=== PATIENT | male | born 1955 | race Caucasian/White ===

== ENCOUNTER 2023-05-27 04:52 | Emergency (ER) | payer BC, OTHER ==
[~2023-05-27] VITALS: Ht 172.7 cm; Wt 81.6 kg
[2023-05-27 04:58] VITALS: BP 116/75; PULSE 97; RESP 16; TEMP 97.3; O2SAT 98
[2023-05-27 05:00] VITALS: BP 116/75; PULSE 97; RESP 16; TEMP 97.3; O2SAT 98
== END 2023-05-27 05:00 | disposition home or self-care (01) ==
LOC: MED 04:52
DX: F10.129 Alcohol abuse with intoxication, unspecified (principal); Y90.0 Blood alcohol level of less than 20 mg/100 ml
CPT/HCPCS: 99283